=== PATIENT | female | born 1990 | race African-American/Black ===

== ENCOUNTER 2023-06-18 17:53 | Inpatient (IN) | payer OTHER ==
[~2023-06-18] VITALS: Ht 152.4 cm; Wt 50.8 kg
[2023-06-18] MEDS ORDERED: PRENATAL CAPLE1 EAC1 PO (19:19)
== END 2023-06-22 12:01 | disposition home or self-care (01) | DRG 833 ==
LOC: OBS/DEL 17:53 → LDR 06-19 08:44 → OBS/DEL 06-19 08:44 → OB/GYN 06-21 12:30
PROVIDERS: Obstetrics & Gynecology Gynecology; ADMIT Obstetrics & Gynecology; ATTEND Obstetrics & Gynecology
PROC: 4A1HXCZ Monitoring of Products of Conception, Cardiac Rate, External Approach (ICD-10-PCS; principal; 2023-06-19)
PROC: BY4CZZZ Ultrasonography of Second Trimester, Single Fetus (ICD-10-PCS; 2023-06-19)
PROC: BU4CZZZ Ultrasonography of Uterus and Ovaries (ICD-10-PCS; 2023-06-19)
DX: O60.02 Preterm labor without delivery, second trimester (principal); O26.842 Uterine size-date discrepancy, second trimester; Z3A.25 25 weeks gestation of pregnancy; Z20.822 Contact with and (suspected) exposure to COVID-19

== ENCOUNTER 2023-07-24 13:14 | Outpatient (CLI) | payer OTHER ==
[~2023-07-24 13:14] MED LIST: PRENATAL CAPLE1 EAC1 PO
== END 2023-07-24 14:27 | disposition home or self-care (01) ==
LOC: NST 13:14
PROVIDERS: ATTEND Obstetrics & Gynecology Maternal & Fetal Medicine
DX: Z34.83 Encounter for supervision of other normal pregnancy, third trimester (principal)

== ENCOUNTER 2023-07-30 16:54 | Outpatient (CLI) | payer OTHER | END 2023-07-30 19:05 | disposition home or self-care (01) | LOC: NST 16:54 | PROVIDERS: ATTEND Obstetrics & Gynecology Maternal & Fetal Medicine | DX: Z34.83 Encounter for supervision of other normal pregnancy, third trimester (principal) ==

== ENCOUNTER 2023-07-31 09:30 | Outpatient (CLI) | payer OTHER | END 2023-07-31 10:41 | disposition home or self-care (01) | LOC: NST 09:30 | PROVIDERS: ATTEND Obstetrics & Gynecology | DX: Z34.83 Encounter for supervision of other normal pregnancy, third trimester (principal) ==

== ENCOUNTER 2023-08-29 10:36 | Outpatient (CLI) | payer OTHER | END 2023-08-29 12:07 | disposition home or self-care (01) | LOC: NST 10:36 | PROVIDERS: ATTEND Obstetrics & Gynecology Maternal & Fetal Medicine | DX: Z34.83 Encounter for supervision of other normal pregnancy, third trimester (principal) ==

== ENCOUNTER 2023-09-12 02:10 | Inpatient (IN) | payer OTHER ==
[~2023-09-12] VITALS: Ht 152.4 cm; Wt 53.1 kg
[2023-09-12] MEDS ORDERED: NIFEDIPINE20 MG PO (02:30)
[2023-09-12] MEDS ORDERED: INTEGRA PLUS C1 EACH (02:31)
[2023-09-12 02:42] LABS: HEMATOCRIT 39.3 % (36.0-45.00); HEMOGLOBIN 13.5 g/dL (12.0-15.00); MEAN CELL VOLUME 89.9 fL (80.00-100.00); MEAN CORPUSCULAR HGB CONC 34.4 g/dl (32.0-36.0); PLATELET COUNT 346 K/uL (150-450); RED BLOOD COUNT 4.37 M/uL (4.00-6.00)
[2023-09-12 03:01] LABS: ALBUMIN 3.3 gm/dL (3.4-5.0); BILIRUBIN TOTAL 0.42 mg/dL (0.3-1.2); CALCIUM 10.5 mg/dL (8.5-10.1); CREATININE SERUM 0.69 mg/dL (0.55-1.02); GFR 97.39; GLOBULINA 5.5 G/DL (2.4-3.5); POTASSIUM 4.43 mEq/L (3.5-5.1); TOTAL PROTEIN 8.8 gm/dL (6.4-8.2)
[2023-09-12 03:14] LABS: INR < 0.93; PARTIAL THROMBOPLASTIN TIME 26.6 SECONDS (22.0-34.0); PROTHROMBIN TIME 9.5 SECONDS (9.0-11.5)
[2023-09-12 03:19] LABS: FIBRINOGEN 691 mg/dL (187.0-446.0)
[2023-09-12 04:30] LABS: URINE BACTERIA 553.1 uL (0.0-1933); URINE EPITHELIAL CELLS 60.1 uL (0.0-38.8); URINE RBC 2.5 uL (0.0-20.8); URINE WBC 88.1 uL (0.0-23.2)
[2023-09-12 04:36] LABS: PH,URINE 6.5 (5.0-8.0); URINE APPEARANCE Cloudy; URINE BILIRRUBIN Negative (NEGATIVE); URINE BLOOD Large; URINE COLOR Orange; URINE GLUCOSE Negative (NEGATIVE); URINE LEUKOCYTE Large; URINE NITRATE Negative; URINE PROTEIN Negative (NEGATIVE); URINE UROBILINOGEN 0.2 E.U./dl
[2023-09-12 08:15] LABS: URINE CRYSTALS NEGATIVE /HPF
[2023-09-12 08:16] LABS: URINE YEAST NEGATIVE /hpf
[2023-09-14 22:09] LABS: HEMATOCRIT 27.8 % (36.0-45.00); HEMOGLOBIN 9.4 g/dL (12.0-15.00); MEAN CORPUSCULAR HEMOGLOBIN 30.4 pg (27.00-32.0); PLATELET COUNT 259 K/uL (150-450); RED BLOOD COUNT 3.09 M/uL (4.00-6.00); RED CELL DISTRIBUTION WIDTH 12.8 % (11.5-14.5)
== END 2023-09-15 12:35 | disposition home or self-care (01) | DRG 807 ==
LOC: LDR → OB/GYN 08:10
PROVIDERS: ADMIT Obstetrics & Gynecology Gynecology; ATTEND Obstetrics & Gynecology Gynecology
PROC: 10E0XZZ Delivery of Products of Conception, External Approach (ICD-10-PCS; principal; 2023-09-12)
PROC: 4A1HXCZ Monitoring of Products of Conception, Cardiac Rate, External Approach (ICD-10-PCS; 2023-09-12)
PROC: BY4FZZZ Ultrasonography of Third Trimester, Single Fetus (ICD-10-PCS; 2023-09-12)
DX: O60.14X0 Preterm labor third trimester with preterm delivery third trimester, not applicable or unspecified (principal); Z37.0 Single live birth; Z3A.35 35 weeks gestation of pregnancy; Z20.822 Contact with and (suspected) exposure to COVID-19